=== PATIENT | female | born 1980 | race Caucasian/White ===

== ENCOUNTER 2016-11-12 22:44 | Inpatient (IN) | payer OTHER ==
[~2016-11-12] VITALS: Ht 167.6 cm; Wt 79.4 kg
[2016-11-12] MEDS ORDERED: Oxytocin 10 Unit/mL Inj IM PRN (23:50)
[2016-11-12] MEDS ORDERED: fentaNYL-PF 50 mCg/mL 2 mL Inj IVPUSH PRN (23:50)
[2016-11-12] MEDS ORDERED: Methylergonovine 0.2 mg/mL Inj IM PRN (23:50)
[2016-11-12] MEDS ORDERED: Ondansetron 2 mg/mL 2 mL Inj IVPUSH PRN (23:50)
[2016-11-12] MEDS ORDERED: Hemorrhage Kit, Post Partum XX ONE (23:50)
[2016-11-12] MEDS ORDERED: Penicillin G K Inj 5,000,000 UNITS in Dextrose 5% Minibag Plus 100 ML IV ONE (23:50)
[2016-11-12] MEDS ORDERED: Carboprost 250 mCg/mL Inj IM PRN (23:50)
[2016-11-12] MEDS ORDERED: Sodium Chloride LOK Flush 10 mL Syringe IVFLUSH PRN (23:50)
[2016-11-12] MEDS ORDERED: Oxytocin 30 Units/500 mL LR 30 UNITS in IV Premix 1 EACH IV PRN (23:50)
[2016-11-13] MEDS: Lactated Ringer's 1,000 ML IV PRN ×2 (00:23→01:30)
[2016-11-13 00:24] LABS: Mean Corpuscular Hemoglobin 31.2 pg (27.0-35.0); Mean Corpuscular Volume 92.2 fL (81-100)
[2016-11-13] MEDS ORDERED: Hemorrhage Kit, Post Partum XX ONE (01:40)
[2016-11-13] MEDS ORDERED: Oxytocin 10 Unit/mL Inj IM PRN (01:40)
[2016-11-13] MEDS ORDERED: Witch Hazel-Glycerin Pads TOPICAL PRN (01:40)
[2016-11-13] MEDS ORDERED: Carboprost 250 mCg/mL Inj IM PRN (01:40)
[2016-11-13] MEDS ORDERED: Oxytocin 30 Units/500 mL LR 30 UNITS in IV Premix 1 EACH IV PRN (01:40)
[2016-11-13] MEDS ORDERED: Methylergonovine 0.2 mg/mL Inj IM PRN (01:40)
[2016-11-13] MEDS ORDERED: Benzocaine (Dermoplast) 20% 60 Gm Spray TOPICAL PRN (01:40)
[2016-11-13] MEDS ORDERED: LANOlin HPA 7 Gm Ointment TOPICAL PRN (01:40)
--- NOTE | 2016-11-13 02:11 | OP ---
[address] [address] OPERATIVE REPORT PATIENT: MARLA WINTER : 1980 MR#: [id number] ADMIT: 11/12/2016 JOB ID: [id number] DATE OF SURGERY: 11/13/2016 POSTOPERATIVE DIAGNOSIS(ES): PREOPERATIVE DIAGNOSIS(ES): SURGEON: DELIVERY SUMMARY: On 11/13/2016 at 1:05 a.m., this 35-year-old, G3, P2 female at 40 weeks and 2 days estimated gestational age delivered a vigorous infant male with Apgars of 8 and 9 by normal vaginal delivery. The weight of the baby is unknown at this time. The patient presented to labor and delivery at 3-4 cm dilation at approximately 11:30 p.m. She progressed in a quick manner to complete by about 12:30 a.m. She had received one dose of penicillin but did not get a second dose, and that dose of penicillin was not given four hours prior to delivery due to the quick delivery itself. The patient presented yadira every five minutes. Her amniotic sac was intact. When I arrived, I ruptured the sac artificially and moderate meconium was noted. The patient never experienced any fevers but had been having some variable decelerations with the rapid advancement of her labor. The patient pushed for approximately 20 minutes and delivered across an intact perineum. Vaginally, there were only small abrasions noted. Nothing required repair. The in-patient peds doctor was called to standby, but the infant was delivered on to his mom and remained there for the entire immediate resuscitation due to excellent tone. The cried right away as well. No additional resuscitative measures were needed to be taken. The placenta delivered approximately 15 minutes later spontaneously and intact with a three-vessel cord. There did seem to be a double amniotic sac, so the placenta was sent for analysis. The placenta itself was otherwise normal. The patient's uterus was immediately found to be firm, and there was minimal bleeding with this delivery. The estimated blood loss was under 200 cc. The patient's uterus was maintained with its tone with the help of Pitocin at 350 cc an hour. The patient was in excellent condition following delivery, and there were no other complications. Her uterus was firm as stated. Her cervix was intact, and her perineum was intact. The patient did not ask for an epidural in time to receive it prior to delivery. She was in excellent condition following delivery.
[2016-11-13] MEDS ORDERED: Penicillin G K Inj 3,000,000 UNITS in IV Premix 1 EACH IV SCH (04:30)
[2016-11-13] MEDS: HYDROcodone-APAP 5-325 mg Tablet PO PRN ×2 (10:45→16:01)
[2016-11-13] MEDS: Lactated Ringer's 1,000 ML IV SCH (12:00)
[2016-11-14] MEDS: HYDROcodone-APAP 5-325 mg Tablet PO PRN ×2 (00:12→12:52)
[2016-11-14 07:44] LABS: Mean Corpuscular Hemoglobin 31.4 pg (27.0-35.0)
--- NOTE | 2016-11-14 13:24 | PCM.DC.OB ---
Obstetrical Discharge Summary Date of Service Nov 14, 2016 Date of hospital admission Nov 12, 2016 at 23:45 Date of Discharge: Nov 14, 2016 Providers Admitting Physician: Lazaro Chambers MD Primary Care Physician: Lazaro Chambers MD Attending Physician: Lazaro Chambers MD Problems: (1) Status post normal vaginal delivery Status: Acute ICD Code: [id number] Consultations None Invasive procedures NVD Date of Procedure: Nov 13, 2016 Hospital Course: Came in to hospital in labor. Delivered in fine fashion. Recovered well. Follow-up plan 8 weeks Discharge Diet: No restrictions Discharge Activity-General: Pelvic Rest for 6 weeks, Be up and about, Activity as pain allows, Activity as energy allows, No lifting >15 pounds for 2 weeks Lazaro Chambers MD Nov 14, 2016 13:24
--- NOTE | 2016-11-14 13:33 | PCM.DIOB ---
Obstetrical Disch Instruction Date of Service: Nov 14, 2016 Dates of Hospitalization Date of Hospital Admission Nov 12, 2016 at 23:45 Providers Admitting Physician: Lazaro Chambers MD Primary Care Physician: Lazaro Chambers MD Attending Physician: Lazaro Chambers MD Discharge Diagnosis Problems: (1) Status post normal vaginal delivery Status: Acute ICD Code: [id number] Diet Discharge Diet: No restrictions Activity Discharge Activity-General: Pelvic Rest for 6 weeks, Be up and about, Balance rest and activity, Activity as pain allows, No lifting >15 pounds for 2 weeks Dressing and Incisional Care Hygiene: May shower, Perineal care, Sitz bath, Dermoplast spray, Witch Britany pads Follow Up Plan Follow-up Provider (F9): Lazaro Chambers MD Follow-up appointment: Weeks (8) Lazaro Chambers MD Nov 14, 2016 13:32
[2016-11-14] MEDS ORDERED: IBUP800T28 PO (13:39)
[2016-11-14] MEDS ORDERED: HYDR-4003 PO (13:39)
[2016-11-14 13:50] VITALS: BP 134/88; PULSE 72; RESP 17
--- NOTE | 2016-11-18 12:02 | PATH ---
SURGICAL PATHOLOGY Attending Physician:Lazaro Chambers MD CASE STATUS: Signed Out PATIENT NAME: MARLA WINTER PID: [id number] : 1980 DATE COLLECTED:11/13/2016 00:00 SPECIMEN: Placenta CLINICAL HISTORY: A: PLACENTA FINAL DIAGNOSIS: 1.PLACENTA (606 GRAMS): MATURE PLACENTA WITH NO EVIDENCE OF CHORIOAMNIONITIS OR FUNISITIS. ICD10 CODE O77.9 GROSS DESCRIPTION: The specimen is received in formalin, labeled with the patient's name and consists of an intact placenta and includes an irregularly shaped placental disc (606 g, 24.5 x 17.5 x 3.1 cm), portion of umbilical cord (length-16.5 cm, diameter-1.5 x 0.7 cm) and membranes. The membranes are ruptured 11.5 cm from the free edge of the placenta and are translucent. The umbilical cord is attached 3.8 cm from the edge of the placenta and contains 3 vessels. The surface is smooth and shiny with no evidence of meconium. The maternal surface is dark maroon with normal cotyledon formation. The placental disc is spongy with no hematomas, infarcts, nodules, masses, or lesions. Section code: (A) edge of placenta with membranes, umbilical cord; (B-C, D-E) placenta, 2 bisected full thickness sections. 11/15/16 MICRO DESCRIPTION: See diagnosis. ICD-9 CODES: CPT CODES: 1: 72683 Electronically Signed Out Joe Levy MD [facility]ology [facility] [address], [place] [address] Technical component performed at [facility], [facility] [address], [address]
== END 2016-11-14 14:22 | disposition home or self-care (01) | DRG 775 ==
LOC: FBCO 22:44 → FBC 23:45
PROVIDERS: ADMIT Family Medicine; ATTEND Family Medicine
PROC: 10E0XZZ Delivery of Products of Conception, External Approach (ICD-10-PCS; principal; 2016-11-13)
PROC: 10907ZC Drainage of Amniotic Fluid, Therapeutic from Products of Conception, Via Natural or Artificial Opening (ICD-10-PCS; 2016-11-13)
DX: O77.0 Labor and delivery complicated by meconium in amniotic fluid (principal); Z37.0 Single live birth; Z3A.40 40 weeks gestation of pregnancy; O62.3 Precipitate labor; O99.824 Streptococcus B carrier state complicating childbirth